=== PATIENT | female | born 1980 | race Caucasian/White ===

== ENCOUNTER 2019-07-01 09:15 | Emergency (ER) | payer SELFPAY ==
--- NOTE | 2019-07-01 09:43 | CT ---
CT BRAIN NONCONTRAST: DATE: 07/01/2019 HISTORY: 38-year-old female status post acute head trauma from fall from horse FINDINGS: There is no evidence of acute intra-axial or extra-axial hemorrhage. There is no midline shift or any other mass effect. There is no extra-axial fluid collection. There is no evidence of obstructive hydrocephalus. Calvarium is intact. IMPRESSION: No acute intracranial findings.
[2019-07-01 09:45] LABS: BHCG - Serum Negative (NEGATIVE); Pregs Control Background? CLEAR/WHITE (CLR/WHITE); Pregs Control Bar Appear? YES (CONTROL BAR)
[2019-07-01 09:46] LABS: #Eosinphils 0.1 thou/uL (0.0-0.7); #Lymphocytes 2.1 thou/uL (1.20-3.40); #Monocytes 0.5 thou/uL (0.11-0.59); %Basophils 0.2 % (0.0-1.0); %Eosinophils 0.8 % (0.0-10.0); %Lymphocytes 31.2 % (21.0-51.0); %Monocytes 7.6 % (0.0-10.0); %Neutrophils 60.3 % (42.0-75.0); Hemoglobin 12.9 g/dL (12.0-16.0); Mean Corpuscular HGB CONC 33.4 g/dL (32.0-36.0); Mean Corpuscular Volume 89.9 fL (78.0-98.0); Mean Platelet Volume 6.7 fL (7.4-10.4); Platelet Count 197 thou/uL (130-400); RBC Distribution Width 11.7 % (11.5-14.5); Red Blood Cell (RBC) Count 4.31 mill/uL (4.20-5.40); White Blood Cell (WBC) Count 6.7 thou/uL (4.8-10.8)
[2019-07-01] MEDS ORDERED: Fentanyl 100 MCG/2 ML VIAL ONE (09:47)
--- NOTE | 2019-07-01 09:47 | CT ---
Exam: CT cervical spine without contrast HISTORY: Status post fall. Posttraumatic pain COMPARISON: None FINDINGS: No craniocervical dissociation. Appropriate alignment of the lateral masses of C1 and C2. Intact odon toid process Appropriate alignment of the facets. There is straightening of normal cervical lordosis which may be due to patient position, muscle spasm or cervical collar. 2.3 mm of anterolisthesis of C3 upon C4. 1.1 mm of anterolisthesis of C3 upon C5. Soft tissue neck structures: No mass, lymphadenopathy or hematoma. No prevertebral soft tissue swelli ng. Upper mediastinum and lung apices: Unremarkable Central spinal canal: Mild central canal stenosis at C3-C4, C4-C5 and moderate central canal stenosis at C5-C6 secondary to disc/disc osteophyte complexes. Limited evaluation due to technique. Vertebral bodies: Cervical spine vertebral body height is maintained. No fracture. IMPRESSION: 1. No fracture. 2. Central canal stenosis as described above. Limited evaluation due to technique 3. Straightening of normal cervical lordosis along with spondylolisthesis as described above. If ther e is concern for ligamentous injury, MRI can be performed.
[2019-07-01 09:53] LABS: ALT (SGPT) 17 U/L (8-55); AST (SGOT) 29 U/L (5-34); Albumin 4.5 g/dL (3.5-5.0); Alkaline Phosphatase 45 U/L (40-150); Anion Gap 13 mmol/L (10-20); BUN (Urea Nitrogen) 19 mg/dL (7.0-18.7); Bilirubin, Total 0.5 mg/dL (0.2-1.2); Calc. Creatinine Clearance 0 mL/min (70-130); Calcium 9.5 mg/dL (7.8-10.44); Carbon Dioxide 24 mmol/L (22-29); Chloride 104 mmol/L (98-107); Estimated GFR-MDRD 77; Globulin 3.4 g/dL (2.4-3.5); Glucose 108 mg/dL (70-105); Lipase 54 U/L (8-78); Potassium 3.9 mmol/L (3.5-5.1); Protein, Total 7.9 g/dL (6.0-8.3); Sodium 137 mmol/L (136-145)
--- NOTE | 2019-07-01 10:00 | CT ---
CT THORAX WITH CONTRAST CT ABDOMEN WITH CONTRAST CT PELVIS WITH CONTRAST CT THORACIC SPINE WITH CONTRAST CT LUMBAR SPINE WITH CONTRAST: (Trauma protocol) DATE: 07/01/2019 HISTORY: 38-year-old female status post acute Trauma to the chest, abdomen, and pelvis Dr. Yang discussed the acute T8 fracture by telephone with Dr. Solis of the emergency Department at 9:5 7 AM on 07/01/2019. TECHNIQUE: IV administration of iodinated contrast media. No oral contrast media. Single phase scans of thorax, abdomen, and pelvis. Sagittal reconstructions of thoracic and lumbar spine. FINDINGS: Lungs: No contusion. Pleura: No pneumothorax or hemothorax. Thoracic aorta: No dissection or rupture. Mediastinum: No hematoma. Abdomen and pelvis: Liver: No laceration Spleen: No laceration Pancreas: No surrounding fluid or fat stranding. Kidneys: No hydronephrosis or laceration. Bladder: No gross evidence of rupture. Abdominal aorta: No dissection or rupture. Small bowel: No dilation. Colon: No adjacent fat stranding. Free air: None. Free fluid: None. Skeleton: Ribs: No grossly displaced acute fracture. Sternum: No grossly displaced acute fracture. Thoracic spine: Positive for acute compression fracture of T8 vertebral body with anterior wedge comp ression deformity. Maximum anterior loss of height approximately 35%. Fracture lucencies involving anterior and middle columns (potentially unstable). Pedicles, lamina, facets, and spinous processes n ot involved. No bony retropulsion. Lumbar spine: No acute compression fracture. Pelvis: No grossly displaced acute fracture. No dislocation. Old healed right mid clavicular fracture deformity. IMPRESSION: 1. Acute, traumatic compression fracture of T8 vertebral body. 2. No other acute injury identified. 3. Old, healed traumatic right clavicular fracture deformity.
--- NOTE | 2019-07-01 11:49 | MRI ---
Exam: MRI thoracic spine without contrast HISTORY: Patient was thrown from a horse. Patient has a T8 vertebral body fracture. COMPARISON: None Correlation: Chest abdomen and pelvic CT 07/01/2019 FINDINGS: There is mild loss of vertebral body height with associated edema at the T8 level, compatible with a known acute mild compression fracture. There is mild retropulsion. Remainder of the thoracic vertebra have appropriate T1 and T2 marrow signal intensity. No additional STIR hyperintensity to sug gest vertebral body edema or ligamentous injury. The thoracic cord has a normal size and signal intensity. No cord expansion. No cord malacia. There is no significant central canal stenosis throughout the central spinal canal from T1 through T7 . At T8, there is mild central canal stenosis secondary to retropulsion of the posterior-superior T8 vertebral body. There is minimal contact upon the central/left paracentral thoracic cord, without cord hyperintensity. Remainder of the thoracic spinal canal is patent. Throughout the thoracic spine, no significant neural foraminal narrowing IMPRESSION: Mild compression fracture at T8 with associated retropulsion. Mild central canal stenosis . No significant cord signal abnormality.
[2019-07-01] MEDS ORDERED: Ondansetron PF 4 MG/2 ML Vial ONE ×2 (13:43→15:31)
[2019-07-01] MEDS ORDERED: Morphine 4 MG/ML VIAL ONE (13:43)
[2019-07-01] MEDS ORDERED: ISOVUE-370 76%-LOCM 1 ML ONE (13:55)
[2019-07-01] MEDS ORDERED: Ketorolac Tromethamine 30 MG/ML VIAL ONE (15:29)
[2019-07-01] MEDS ORDERED: Promethazine HCl 25 MG/ML VIAL ONE (15:47)
== END 2019-07-01 16:18 | disposition home or self-care (01) ==
LOC: ERS 09:15
DX: S22.069A Unspecified fracture of T7-T8 vertebra, initial encounter for closed fracture (principal); V80.010A Animal-rider injured by fall from or being thrown from horse in noncollision accident, initial encounter
CPT/HCPCS: 36415; 70450; 71260; 72125; 72146; 74177; 80053; 83605; 83690; 84703; 85025; 96374; 96375; 96376; J1885; J2270; J2405; J2550; J3010; Q9966

== ENCOUNTER 2019-07-15 10:32 | Outpatient (CLI) | payer OTHER ==
--- NOTE | 2019-07-15 12:44 | RAD ---
THORACIC SPINE TWO VIEWS: 07/15/19 INDICATION: Compression fracture of the thoracic spine. COMPARISON: Prior MR of the thoracic spine dated 07/01/19. FINDINGS: Mild wedge compression fracture of T8 does not appear significantly changed in the degree of height l oss. There is approximately 25% of the loss of height involving the anterior aspect of the T8 vertebr al body. No additional fracture is evident. The visualized lungs are clear. IMPRESSION: Stable wedge compression fracture at T8. POS: [facility]
== END 2019-07-15 10:33 | disposition home or self-care (01) ==
LOC: TBSIIMAG 10:32
PROVIDERS: ATTEND Neurological Surgery
DX: S22.060A Wedge compression fracture of T7-T8 vertebra, initial encounter for closed fracture (principal)
CPT/HCPCS: 72070